=== PATIENT | female | born 1980 | race African-American/Black ===

== ENCOUNTER 2018-06-02 | Emergency (ER) | payer SELFPAY ==
[~2018-06-02] VITALS: Ht 154.9 cm; Wt 79.4 kg
[2018-06-02 00:08] VITALS: BP 134/88
[2018-06-02] MEDS ORDERED: NKM (00:16)
--- NOTE | 2018-06-02 00:27 | Emergency Room Report ---
History of Present Illness General Chief Complaint: Vomiting Source: Patient Present Illness HPI Is a 38-year-old female with history of asthma. She presents with chief complaint of left flank pain. Onset 3 days ago. Was relatively acute. She has nausea vomiting. No diarrhea. She went to [facility] 2 days ago. Had x- rays which were negative. Urine show blood but she is currently menstruating. Was told that is probably a viral infection. Not getting better. Pain now radiating toward the groin area. Painful urination. No fever chills but no hematuria. Family history of kidney stone. Pain is 9 out of 10. Nothing made it better. Nothing made it worse. [id number] medicine not helping. Allergies: Coded Allergies: IBUPROFEN (Verified Allergy, Unknown, 06/02/18) KETOROLAC (Verified Allergy, Unknown, 06/02/18) Patient History Past Medical History: see triage record, old chart reviewed, asthma Past Surgical History: none Pertinent Family History: none Social History: Denies: smoking Last Menstrual Period: 1 week ago Now: No Immunizations: other Reviewed Nursing Documentation: PMH: Agreed; PSxH: Agreed Nursing Documentation-PMH Hx Gastrointestinal Problems: Yes - Appy Review of Systems Eye: Denies: eye pain, blurred vision ENT: Denies: ear pain, nose congestion, throat swelling Respiratory: Denies: cough, shortness of breath Cardiovascular: Denies: chest pain, palpitations Gastrointestinal: Reports: abdominal pain; Denies: diarrhea, nausea, vomiting Musculoskeletal: Denies: back pain, joint pain Skin: Denies: rash Neurological: Denies: headache, numbness Endocrine: Denies: increased thirst, increased urine Hematologic/Lymphatic: Denies: easy bruising All Other Systems: negative except mentioned in HPI Physical Exam Vital Signs Date Time Temp Pulse Resp B/P (MAP) Pulse Ox O2 Delivery O2 Flow Rate FiO2 06/02/18 00:07 Room Air vitals unremarkable Sp02 EP Interpretation: reviewed, normal General Appearance: well appearing, no apparent distress, alert Head: normocephalic, atraumatic Eyes: bilateral eye PERRL, bilateral eye EOMI ENT: hearing grossly normal, normal pharynx Neck: full range of motion, supple, no meningismus Respiratory: chest non-tender, lungs clear, normal breath sounds Cardiovascular #1: regular rate, rhythm, no murmur Gastrointestinal: normal bowel sounds, non tender, no mass, no organomegaly, no bruit, non-distended Musculoskeletal: back normal, gait/station normal, normal range of motion Psychiatric: mood/affect normal Skin: warm/dry Medical Decision Making Diagnostic Impression: Primary Impression: Abdominal pain Qualified Codes: R10.32 - Left lower quadrant pain Additional Impression: Nausea & vomiting Qualified Codes: R11.2 - Nausea with vomiting, unspecified ER Course Patient presents with abdominal pain with nausea and vomiting. Labs unremarkable. Urine negative. No ketones. CT scan normal. Pain is better now after IV medication. We'll discharge home. No evidence of an acute abdomen or obstruction. Lab Results Impression labs normal CT/MRI/US Diagnostic Results CT/MRI/US Diagnostic Results : Imaging Test Ordered: CT abdomen and pelvis Impression read by radiologist. Neg Last Vital Signs Date Time Temp Pulse Resp B/P (MAP) Pulse Ox O2 Delivery O2 Flow Rate FiO2 06/02/18 00:07 Room Air Status: improved Disposition: HOME, SELF-CARE Condition: Stable Scripts Ondansetron (Zofran) 4 Mg Tablet 4 MG ORAL Q6H PRN for Nausea & Vomiting, #15 TAB 0 Refills Prov: Brian Will MD 06/02/18 Hydrocodone/Acetaminophen 5-325* (HYDROCODONE/ACETAMINOPHEN 5-325*) 1 Each Tablet 1 TAB ORAL Q6H PRN for For Pain, #10 TAB 0 Refills Prov: Brian Will MD 06/02/18 Patient Instructions: Nausea and Vomiting, Adult Additional Instructions: Follow-up with your DrCarl in 2 to 3 days of not better. Return if symptom worsen. Brian Will MD Jun 02, 2018 00:27
[2018-06-02] MEDS ORDERED: Morphine Sulfate 4mg/ml Inj (IV/IM USE ONLY) IVP ONE ×2 (00:30→02:00)
[2018-06-02 00:32] LABS: APPEARANCE,URINE CLEAR; BILIRUBIN, URINE NEGATIVE (NEGATIVE); COLOR,URINE PALE YELLOW; GLUCOSE, URINE (UA) NEGATIVE (NEGATIVE); KETONES,URINE NEGATIVE (NEGATIVE); LEUKOCYTE ESTERASE ,URINE NEGATIVE (NEGATIVE); NITRITE,URINE NEGATIVE (NEGATIVE); PH,URINE 6.5 (4.5-8.0); PROTEIN,URINE NEGATIVE (NEGATIVE); UROBILINOGEN,URINE NORMAL MG/DL (0.0-1.0)
[2018-06-02 00:45] LABS: BASOPHILS % (AUTO) 1.6 % (0.0-2.0); EOSINOPHILS % (AUTO) 1.2 % (0.0-3.0); HEMATOCRIT 37.6 % (37.0-47.0); LYMPHOCYTES % (AUTO) 32.4 % (20.0-45.0); MEAN CORPUSCULAR VOLUME 89 FL (80-99); NEUTROPHILS % (AUTO) 59.8 % (45.0-75.0); PLATELET COUNT 271 K/UL (150-450); RED BLOOD COUNT 4.25 M/UL (4.20-5.40); RED CELL DISTRIBUTION WIDTH 15.3 % (11.6-14.8); WHITE BLOOD COUNT 10.7 K/UL (4.8-10.8)
[2018-06-02 00:53] LABS: ANION GAP 8 mmol/L (5-15); BLOOD UREA NITROGEN 9 mg/dL (7-18); CALCIUM 9.5 MG/DL (8.5-10.1); CARBON DIOXIDE 29 MMOL/L (21-32); CHLORIDE 104 MMOL/L (98-107); CREATININE 0.9 MG/DL (0.55-1.30); POTASSIUM 4.2 MMOL/L (3.5-5.1); SODIUM 141 MMOL/L (136-145)
[2018-06-02] MEDS ORDERED: DiphenhydrAMINE 50mg/ml Inj IVP ONE ×2 (01:00→02:15)
[2018-06-02] MEDS ORDERED: HYDROCODON-ACE1 EA15 ORAL (02:27)
[2018-06-02] MEDS ORDERED: ZOFRAN4 MG ORAL (02:27)
[2018-06-02 02:40] VITALS: BP 136/88
[2018-06-02 02:45] VITALS: BP 136/88
--- NOTE | 2018-06-02 09:01 | Diagnostic Imaging Report ---
Indication: Abdominal pain for 3 days Technique: Noncontrast CT of the abdomen and pelvis utilizing automated exposure control. Axial, sagittal and coronal reformats presented. CT dose: Total DLP 735.25 mGycm; CTDI vol 15.47 mGy Comparison: None Findings: Please note that evaluation of the abdominal and pelvic viscera and vascular structures is limited without the use of intravenous and oral contrast. Within these limitations the following observations are made: Minimal dependent atelectatic changes noted in the posterior lower lobes bilaterally. Heart size within normal limits. No pericardial effusion. Partially imaged breast tissue grossly symmetric. Liver is mildly enlarged measuring 18 cm in length. Otherwise noncontrast evaluation of the liver, gallbladder, spleen, adrenal glands and pancreas is grossly unremarkable. There is no perinephric stranding. No urinary tract stone or hydronephrosis. Bladder unremarkable. Uterus grossly unremarkable for CT in patient's age. A low-attenuation structure is noted in the right adnexa most likely representing a cyst, possibly physiologic. There is no free intraperitoneal air or fluid. There is no evidence of bowel obstruction or definite inflammatory changes in the mesentery. Appendix is not definitively identified however there are no focal inflammatory changes in the right lower quadrant to suggest acute appendicitis. Abdominal aorta normal in caliber. No pathologically enlarged/conglomerate lymphadenopathy identified. No acute osseous abnormality. There is a tiny fat-containing umbilical hernia. IMPRESSION: Limited exam without intravenous and oral contrast. Within these limitations: No evidence of acute intra-abdominal pathology. Incidental findings as above. This corresponds with the statrad preliminary report. The CT scanner at [facility] is accredited by the [employer] and the scans are performed using protocols designed to limit radiation exposure to as low as reasonably achievable to attain images of sufficient resolution adequate for diagnostic evaluation.
== END 2018-06-02 02:45 | disposition home or self-care (01) ==
LOC: EMR 00:30
DX: R10.32 Left lower quadrant pain (principal); R11.2 Nausea with vomiting, unspecified; Z88.6 Allergy status to analgesic agent; Z90.89 Acquired absence of other organs
CPT/HCPCS: 36415; 74176; 80048; 81003; 81025; 85025; 96361; 96374; 96375; 96376; 99284; J1200; J2270; J2405

== ENCOUNTER 2018-06-06 19:46 | Inpatient (IN) | payer MEDICAID ==
[~2018-06-06] VITALS: Ht 154.9 cm; Wt 81.6 kg
[~2018-06-06 19:46] MED LIST: HYDROCODON-ACE1 EA15 ORAL; NKM; ZOFRAN4 MG ORAL
[2018-06-06] MEDS ORDERED: Morphine Sulfate 10mg/ml Inj IVP ONE (20:15)
--- NOTE | 2018-06-06 20:16 | Emergency Room Report ---
History of Present Illness General Chief Complaint: Vomiting Source: Patient Present Illness HPI Is a 38-year-old female with a history of appendectomy. She presents with chief complaint abdominal pain with nausea and vomiting. She was here 4 days ago for the same thing. Labs are unremarkable. Urine unremarkable. CT scan show small right ovarian cyst. She has a history of ovarian cyst that require surgery. She also has a history of appendectomy. Said she been home she's been continual vomiting with pain. Nausea is nonbloody nonbilious. No diarrhea. No fever or chills. Pain is 9 out of 10. Her pain is in the lower quadrant rating from right to left. Allergies: Coded Allergies: IBUPROFEN (Verified Allergy, Unknown, 06/02/18) KETOROLAC (Verified Allergy, Unknown, 06/02/18) Patient History Past Medical History: see triage record, old chart reviewed Past Surgical History: appy Pertinent Family History: none Social History: Denies: smoking Last Menstrual Period: Two weeks ago Now: No Immunizations: other Reviewed Nursing Documentation: PMH: Agreed; PSxH: Agreed Review of Systems Eye: Denies: eye pain, blurred vision ENT: Denies: ear pain, nose congestion, throat swelling Respiratory: Denies: cough, shortness of breath Cardiovascular: Denies: chest pain, palpitations Gastrointestinal: Reports: abdominal pain, nausea, vomiting; Denies: diarrhea Musculoskeletal: Denies: back pain, joint pain Skin: Denies: rash Neurological: Denies: headache, numbness Endocrine: Denies: increased thirst, increased urine Hematologic/Lymphatic: Denies: easy bruising All Other Systems: negative except mentioned in HPI Physical Exam Vital Signs Date Time Temp Pulse Resp B/P (MAP) Pulse Ox O2 Delivery O2 Flow Rate FiO2 06/06/18 20:00 97.9 99 16 106/69 97 Room Air vitals normal Sp02 EP Interpretation: reviewed, normal General Appearance: well appearing, no apparent distress, alert Head: normocephalic, atraumatic Eyes: bilateral eye PERRL, bilateral eye EOMI ENT: hearing grossly normal, normal pharynx Neck: full range of motion, supple, no meningismus Respiratory: chest non-tender, lungs clear, normal breath sounds Cardiovascular #1: regular rate, rhythm, no murmur Gastrointestinal: normal bowel sounds, no mass, no organomegaly, no bruit, non- distended, tenderness - Lower pelvic Musculoskeletal: back normal, gait/station normal, normal range of motion Psychiatric: mood/affect normal Skin: warm/dry Medical Decision Making Diagnostic Impression: Primary Impression: Intractable abdominal pain Additional Impression: Intractable vomiting with nausea Qualified Codes: R11.2 - Nausea with vomiting, unspecified ER Course Is a with intractable vomiting and diarrhea. This is a second visit for her within the last week. Labs unremarkable. I repeat a CT scan it just showed a small right ovarian cyst. Now her pain is on the left side. Ultrasound is negative for any torsion or obvious hemorrhagic cyst. Because of her continual pain and increasing requirement for IV medication, will admit for IV fluid and IV pain medication. I discussed the case with Dr. Nixon who will admit. CT/MRI/US Diagnostic Results CT/MRI/US Diagnostic Results : Imaging Test Ordered: Pelvic ultrasound Impression Read by radiologist. Small right ovarian cyst. No torsion. Last Vital Signs Date Time Temp Pulse Resp B/P (MAP) Pulse Ox O2 Delivery O2 Flow Rate FiO2 06/06/18 20:00 97.9 99 16 106/69 97 Room Air Brian Will MD Jun 06, 2018 20:16
--- NOTE | 2018-06-06 20:20 | NUR ---
ER Nurse Note: Pt came from home c/o left lower abdominal pain associated with n/v. Pt stated pain at 9/10 radiating slightly to the left flank. Pt stated she had a recent visit to [facility] [place] for the same problem. Pt is vomiting bile, bowel sounds heard in all quadrants. Pain with pressure. Pt is a&ox4, VSS. ERMD at bedside; will continue to [facility].
[2018-06-06 20:34] LABS: APPEARANCE,URINE CLEAR; BILIRUBIN, URINE NEGATIVE (NEGATIVE); COLOR,URINE PALE YELLOW; GLUCOSE, URINE (UA) NEGATIVE (NEGATIVE); KETONES,URINE NEGATIVE (NEGATIVE); LEUKOCYTE ESTERASE ,URINE 1+ (NEGATIVE); NITRITE,URINE NEGATIVE (NEGATIVE); PH,URINE 7 (4.5-8.0); PROTEIN,URINE NEGATIVE (NEGATIVE); UROBILINOGEN,URINE NORMAL MG/DL (0.0-1.0)
[2018-06-06 20:45] VITALS: BP 191/101
[2018-06-06 21:10] LABS: BASOPHILS % (AUTO) 1.8 % (0.0-2.0); EOSINOPHILS % (AUTO) 1.5 % (0.0-3.0); HEMATOCRIT 39.2 % (37.0-47.0); HEMOGLOBIN 12.1 G/DL (12.0-16.0); MEAN CORPUSCULAR VOLUME 90 FL (80-99); MONOCYTES % (AUTO) 6.3 % (1.0-10.0); NEUTROPHILS % (AUTO) 59.4 % (45.0-75.0); PLATELET COUNT 209 K/UL (150-450); RED BLOOD COUNT 4.37 M/UL (4.20-5.40); RED CELL DISTRIBUTION WIDTH 15.3 % (11.6-14.8); WHITE BLOOD COUNT 10.6 K/UL (4.8-10.8)
[2018-06-06 21:23] LABS: ANION GAP 11 mmol/L (5-15); BLOOD UREA NITROGEN 18 mg/dL (7-18); CALCIUM 9.2 MG/DL (8.5-10.1); CARBON DIOXIDE 25 MMOL/L (21-32); CHLORIDE 103 MMOL/L (98-107); CREATININE 1.1 MG/DL (0.55-1.30); POTASSIUM 4.1 MMOL/L (3.5-5.1); SODIUM 139 MMOL/L (136-145)
[2018-06-06 21:27] LABS: ALANINE AMINOTRANSFERASE 22 U/L (12-78); ALBUMIN 3.9 G/DL (3.4-5.0); ALKALINE PHOSPHATASE 86 U/L (46-116); ASPARTATE AMINO TRANSFERASE 16 U/L (15-37); BILIRUBIN,TOTAL 0.1 MG/DL (0.2-1.0)
--- NOTE | 2018-06-06 21:50 | Diagnostic Imaging Report ---
EXAM: US Pelvis Complete, Transabdominal CLINICAL HISTORY: ABD PAIN TECHNIQUE: Real-time transabdominal pelvic ultrasound (complete) with image documentation. COMPARISON: CT performed on 06/02/18. FINDINGS: Uterus/cervix: The uterus is retroverted. The endometrial stripe measures 12 mm. The uterus measures 8.0 x 5.7 x 4.7 cm. No myometrial mass. Right ovary: There is a 2.5 x 2.3 x 1.8 cm right ovarian cyst. The right ovary demonstrates vascular flow and measures 4.2 x 2.9 x 3.5 cm. Left ovary: The left ovary is unremarkable and measures 3.1 x 1.8 x 1. 4 cm. The left ovary demonstrates vascular flow. Free fluid: Trace amount of nonspecific free fluid in the pelvis. Bladder: Not well visualized. IMPRESSION: Small right ovarian cyst as described above.
[2018-06-06] MEDS ORDERED: HYDROmorphone 1mg/ml Carpuject IVP ONE (22:15)
[2018-06-06] MEDS ORDERED: DiphenhydrAMINE 50mg/ml Inj IVP ONE (22:15)
[2018-06-06] MEDS ORDERED: Isovue-300 100ml vial INJ PRN (22:15)
[2018-06-06 22:40] VITALS: BP 123/78
--- NOTE | 2018-06-06 23:04 | Diagnostic Imaging Report ---
EXAM: CT Abdomen and Pelvis With Intravenous Contrast CLINICAL HISTORY: ABD PAIN TECHNIQUE: Axial computed tomography images of the abdomen and pelvis with intravenous contrast. CTDI is 0.15, 16.58 mGy and DLP is 865 mGy-cm. One or more of the following dose reduction techniques were used: automated exposure control, adjustment of the mA and/or kV according to patient size, use of iterative reconstruction technique. Coronal and sagittal reformatted images were created and reviewed. COMPARISON: 06/02/18 FINDINGS: Lung bases: Mild atelectasis at the lung bases. ABDOMEN: Liver: The liver is unremarkable. Gallbladder and bile ducts: The gallbladder is unremarkable. No calcified stones. No ductal dilation. Pancreas: The pancreas is unremarkable. No ductal dilation. Spleen: The spleen is unremarkable. Adrenals: The adrenals are unremarkable. Kidneys and ureters: The kidneys are unremarkable. No hydronephrosis. Stomach and bowel: No evidence for bowel related inflammatory changes. No evidence for significant bowel loop dilation to suggest an obstructive process. PELVIS: Appendix: The appendix is not clearly identified. No evidence for pericecal inflammatory changes. Bladder: The bladder is grossly unremarkable. Reproductive: Right ovarian cyst measuring 2.3 x 1.5 cm in maximum transverse dimensions. A smaller cyst is also noted in the right ovary. Question of a small fibroid in the uterus. ABDOMEN and PELVIS: Intraperitoneal space: Small amount of nonspecific free fluid in the pelvis. No evidence for free intraperitoneal gas. Bones/joints: No acute fracture. No dislocation. Soft tissues: Small umbilical hernia containing fat only. Vasculature: Unremarkable. No abdominal aortic aneurysm. Lymph nodes: Unremarkable. No enlarged lymph nodes. IMPRESSION: Right ovarian cyst measuring 2.3 x 1.5 cm in maximum transverse dimensions. A smaller cyst is also noted in the right ovary.
--- NOTE | 2018-06-06 23:12 | NUR ---
ER Nurse Note: Pt was given 2 IV zofran for n/v; pt tolerated well but pt complained of slight nausea. Pain medication, no signs of distress, no complains of pain. Pt is asleep, VSS, currently no complains of itchiness and pain. [facility].
[2018-06-06] MEDS ORDERED: Sodium Chloride 500ML 500 ML IVLG SCH (23:22)
[2018-06-06] MEDS ORDERED: Morphine Sulfate 4mg/ml Inj (IV/IM USE ONLY) IVP PRN (23:30)
--- NOTE | 2018-06-06 23:31 | NUR ---
ER Nurse Note: Pt refused VRE/CRE swab; allowed MRSA swab. Pt is resting, calm, no signs of distress. All belongings at bedside. Will continue to [facility].
[2018-06-07 00:31] VITALS: BP 101/53
--- NOTE | 2018-06-07 00:34 | NUR ---
ER Nurse Note: Gave report to QUIRINO Alston on MS. Pt is a&ox4, VSS, asleep, left with all belonings.
--- NOTE | 2018-06-07 00:55 | NUR ---
NURSE NOTES: Patient admitted from ER via gurney. Patient is aaox4, drowsy from medication but still c/o 8/10 LLQ abdominal pain intermittently. Denies nausea and requesting for juice, made aware that we are awaiting for admitting doctor for admission orders. Lwrist IV is intact and patent, but positional. All belongings verified at bedside. Call light provided for patient. Will continue to monitor. Call placed to Dr. Nixon's voicemail. Awaiting for call back.
[2018-06-07 01:02] VITALS: BP 104/65
--- NOTE | 2018-06-07 01:30 | NUR ---
NURSE NOTES: Admission orders received from Dr. Nixon. Patient requesting if she could have benadryl with morphine. Dr. Nixon did not order benadryl for patient. Addendum: 06/07/18 at 0232 by ARMANDO MOREIRA RN RN At 0200 after giving patient 1mg of morphine, pt complained of itching and redness was apparent on her right arm where she was scratching. Dr. Nixon was made aware. Dr. Nixon dc/d morphine and ordered tramadol instead for patient. Went back to patient but patient was sleeping and appears comfortable at this time. Will monitor.
[2018-06-07] MEDS ORDERED: HYDROcodone/Acetamin 10/325 tab ORAL PRN (01:45)
[2018-06-07] MEDS ORDERED: Morphine Sulfate 4mg/ml Inj (IV/IM USE ONLY) IVP PRN (01:45)
[2018-06-07] MEDS ORDERED: traMADol 50mg tab ORAL PRN (02:15)
--- NOTE | 2018-06-07 03:00 | NUR ---
NURSE NOTES: Patient had crackers and total of 5 cups of orange juice, tolerating well.
[2018-06-07 04:00] VITALS: BP 97/78
--- NOTE | 2018-06-07 05:45 | NUR ---
NURSE NOTES: Dr. Nixon made aware that patient vomited (at 0430) 45 mins after norco administration. RN unable to see the emesis as patient's bathroom was locked while she was vomiting/heaving. and patient flushed the toilet after. Patient still c/o pain at 0540 but next pain medication still not due. Per Dr. Nixon, give tramadol. Went to patient, patient is asleep. Will continue to monitor.
--- NOTE | 2018-06-07 06:45 | NUR ---
NURSE NOTES: Checked on patient, still asleep. Will offer tramadol to patient when awake.
--- NOTE | 2018-06-07 07:44 | NUR ---
HAND-OFF: Report given to Leeanne Christopher RN.
[2018-06-07 08:00] VITALS: BP 122/75
--- NOTE | 2018-06-07 08:11 | NUR ---
NURSE NOTES: Received report from QUIRINO Snyder. Rounding done with outgoing nurse. Patient asleep and call light within reach. Will continue to monitor.
--- NOTE | 2018-06-07 09:30 | NUR ---
NURSE NOTES: Belongings checked with the patient. Discharge instruction and prescription were given. Removed IV. Discharged in stable condition.
--- NOTE | 2018-06-07 10:15 | History and Physical Report ---
DATE OF ADMISSION: 06/06/2018 CHIEF COMPLAINT: Intractable nausea, vomiting, and abdominal pain. HISTORY OF PRESENT ILLNESS: The patient is a pleasant 38-year-old female. She has a prior history of ovarian cysts. She presented with complaints of five days of intractable nausea and vomiting. According to the patient, she has been unable to tolerate any POs including some liquids. She presented to the emergency room five days ago, was given Zofran and pain medications, but returned because of persistent nausea and vomiting. In the ER, she had a CT scan of the abdomen and pelvis that was relatively unremarkable except for a small right ovarian cyst. She had a pelvic ultrasound, which confirmed the ovarian cysts. Otherwise, the patient denies any melena. She has had no bright red blood per rectum. She has had one ill contact. She denies any fevers or chills. PAST MEDICAL HISTORY: As above. PAST SURGICAL HISTORY: Includes appendectomy. CURRENT MEDICATIONS: Reconciled and reviewed. ALLERGIES: Include Tylenol, hydrocodone, ibuprofen, Toradol, and morphine. FAMILY HISTORY: Noncontributory. SOCIAL HISTORY: Negative for alcohol or drugs. REVIEW OF SYSTEMS: Negative except for nausea and vomiting. PHYSICAL EXAMINATION: VITAL SIGNS: Temperature 97.2 degrees, pulse 83, respirations 18, and blood pressure 97/78. GENERAL: The patient is well developed, in no apparent distress. HEART: Regular rate and rhythm. LUNGS: Clear. ABDOMEN: Soft and minimal tender on the left side. There is no rebound or guarding. EXTREMITIES: No clubbing, cyanosis, or edema. LABORATORY DATA: Tox screen was significant only for benzodiazepines. White count 10, hemoglobin 12, hematocrit 39, and platelets 209,000. Sodium 139, potassium 4.1, and creatinine was 1.1. Lipase is 285. Beta HCG was less than 1. Urine was clear. ASSESSMENT: This is a pleasant female, who complaints of intractable nausea and vomiting, suspect resolving gastroenteritis. The patient has already tolerated breakfast this morning. PLAN: Tylenol for pain. IV hydration. IV Zofran as needed. The patient tolerated her lunch, she can be discharged. The patient has been requesting IV opiates. I discussed with her at length that there is no clear objective evidence giving any IV opiates at this time. We will reassess after lunch for possible discharge. Jamie Nixon M.D. DR: BLAISE JOB#: [id number] CC:
--- NOTE | 2018-06-09 07:48 | Discharge Summary ---
Discharge Summary Discharge Summary _ DATE OF ADMISSION: 06/06/2018 DATE OF DISCHARGE: 06/07/2018 DISCHARGED BY: REASON FOR ADMISSION: 38 years old female with history of ovarian cyst, presented with complaint of 5 days of intractable nausea and vomiting and abdominal pain. According to patient, she was unable to tolerate any oral foods including liquids. Patient presented to the emergency room initially 5 days ago and was given Zofran and analgesia . However, patient returned due to persistent nausea and vomiting and inability to tolerate oral diet. In emergency department patient had a CT scan of the abdomen and pelvis which was relatively unremarkable except right ovarian cyst measuring 2.3 x 1.5 cm in maximum transverse dimensions. No torsion. Pelvic ultrasound confirmed the ovarian cyst. Patient denied melena , no bright red blood per rectum. No fever, no chills Laboratory workup was unremarkable. Urine test was negative. Urine toxicology screen was positive for benzodiazepine. Urinalysis revealed no evidence of urinary tract infection. Patient admitted for intractable nausea and vomiting and abdominal pain. HOSPITAL COURSE: Patient admitted to medical surgical floor. Patient started on the IV hydration. Patient started on clear liquid diet and was advanced as tolerated. Supportive care provided. Antiemetics were on board as needed. Pain management was addressed , pain was controlled. Patient was able to tolerata diet. Nausea and vomiting resolved. Patient was stable for discharge home. FINAL DIAGNOSES: Likely gastroenteritis-resolving Intractable abdominal pain with nausea and vomiting m likely due to gastroenteritis Right ovarian cyst DISCHARGE MEDICATIONS: See Medication Reconciliation list. DISCHARGE INSTRUCTIONS: Patient was discharged home. Follow up with primary care provider in one week. I have been assigned to dictate discharge summary for this account. I was not involved in the patient's management. Sara Persaud NP Jun 09, 2018 07:48
== END 2018-06-07 09:30 | disposition home or self-care (01) | DRG 249 ==
LOC: EMR 20:20 → 3E 22:56 → EDBEDREQ 06-07 00:21
DX: K52.9 Noninfective gastroenteritis and colitis, unspecified (principal); N83.201 Unspecified ovarian cyst, right side; Z88.6 Allergy status to analgesic agent
CPT/HCPCS: 36415; 74177; 76856; 80053; 80307; 81003; 81025; 83690; 84702; 85025; 87081; 96361; 96374; 96375; 99285; J2405

== ENCOUNTER 2018-07-08 23:43 | Emergency (ER) | payer SELFPAY ==
[~2018-07-08] VITALS: Ht 154.9 cm; Wt 81.6 kg
--- NOTE | 2018-07-09 | NUR ---
ED Nurse Note: Patient walk in c/o lower abdominal pain and N/V/D since yesterday. Denies current NVD. AO4. NAD. VSS. ERMD at bedside. Urine collected; sent down to lab.
[2018-07-09] MEDS ORDERED: HYDROmorphone 1mg/ml Carpuject IM ONE (00:15)
[2018-07-09 00:21] VITALS: BP 126/74
[2018-07-09 00:26] LABS: BILIRUBIN, URINE NEGATIVE (NEGATIVE); COLOR,URINE PALE YELLOW; GLUCOSE, URINE (UA) NEGATIVE (NEGATIVE); KETONES,URINE NEGATIVE (NEGATIVE); LEUKOCYTE ESTERASE ,URINE NEGATIVE (NEGATIVE); NITRITE,URINE NEGATIVE (NEGATIVE); PH,URINE 5 (4.5-8.0); PROTEIN,URINE NEGATIVE (NEGATIVE); UROBILINOGEN,URINE NORMAL MG/DL (0.0-1.0)
[2018-07-09 00:27] LABS: APPEARANCE,URINE CLEAR
[2018-07-09] MEDS ORDERED: PROMETHAZINE HC25 M1 ORAL (01:04)
[2018-07-09] MEDS ORDERED: TRAMADOL HCL50 MG ORAL (01:04)
--- NOTE | 2018-07-09 01:04 | Emergency Room Report ---
History of Present Illness General Chief Complaint: Abdominal Pain Source: Patient Present Illness HPI This is a 37-year-old female with a history of recurrent abdominal pain with nausea vomiting and diarrhea. She usually go to the hospital at least once a month. Normally her [place] but now coming here. She presents with chief complaint abdominal pain with nausea vomiting diarrhea. Onset tonight. Pain is 10 out of 10. Denies any fever chills but she was recently admitted here with normal CT scan and labs. Allergies: Coded Allergies: IBUPROFEN (Verified Allergy, Unknown, 06/02/18) KETOROLAC (Verified Allergy, Unknown, 06/02/18) Patient History Past Medical History: see triage record, old chart reviewed Past Surgical History: none Pertinent Family History: none Social History: Denies: smoking Last Menstrual Period: 06/18/2018 Now: No Immunizations: other Reviewed Nursing Documentation: PMH: Agreed; PSxH: Agreed Nursing Documentation-PMH Past Medical History: No History, Except For Hx Cardiac Problems: No Hx Neurological Problems: No Review of Systems Eye: Denies: eye pain, blurred vision ENT: Denies: ear pain, nose congestion, throat swelling Respiratory: Denies: cough, shortness of breath Cardiovascular: Denies: chest pain, palpitations Gastrointestinal: Reports: abdominal pain, diarrhea, nausea, vomiting Musculoskeletal: Denies: back pain, joint pain Skin: Denies: rash Neurological: Denies: headache, numbness Endocrine: Denies: increased thirst, increased urine Hematologic/Lymphatic: Denies: easy bruising All Other Systems: negative except mentioned in HPI Physical Exam Vital Signs Date Time Temp Pulse Resp B/P (MAP) Pulse Ox O2 Delivery O2 Flow Rate FiO2 07/08/18 23:55 98.1 90 16 126/74 100 Room Air vitals normal Sp02 EP Interpretation: reviewed, normal General Appearance: well appearing, no apparent distress, alert Head: normocephalic, atraumatic Eyes: bilateral eye PERRL, bilateral eye EOMI ENT: hearing grossly normal, normal pharynx Neck: full range of motion, supple, no meningismus Respiratory: chest non-tender, lungs clear, normal breath sounds Cardiovascular #1: regular rate, rhythm, no murmur Gastrointestinal: normal bowel sounds, no mass, no organomegaly, no bruit, non- distended, tenderness - Soft, diffuse tenderness Musculoskeletal: back normal, gait/station normal, normal range of motion Psychiatric: mood/affect normal Skin: warm/dry Medical Decision Making Diagnostic Impression: Primary Impression: Abdominal pain Qualified Codes: R10.84 - Generalized abdominal pain Additional Impression: Nausea vomiting and diarrhea ER Course Patient with abdominal pain with nausea vomiting diarrhea. Is a recurrent issue. [address] scan negative. She also had CT scan in the past at [facility]. I see no need for blood work or CT scan. Abdominal exam is benign. I see no evidence of acute abdomen or obstruction. She is better now after dose of Dilaudid and Phenergan. Last Vital Signs Date Time Temp Pulse Resp B/P (MAP) Pulse Ox O2 Delivery O2 Flow Rate FiO2 07/09/18 00:21 90 16 Room Air 07/09/18 00:21 98.1 126/74 100 Status: improved Disposition: HOME, SELF-CARE Condition: Stable Scripts Promethazine Hcl* (PHENERGAN*) 25 Mg Tablet 25 MG ORAL Q6H, #15 TAB Prov: Brian Will MD 07/09/18 Tramadol Hcl* (ULTRAM*) 50 Mg Tablet 50 MG ORAL Q6H PRN for For Pain, #15 TAB 0 Refills Prov: Brian Will MD 07/09/18 Patient Instructions: Abdominal Pain, Adult Additional Instructions: Follow-up with your DrCarl in 2-3 days. You may benefit from referral to see a natural sciences professor. Return if worse. Brian Will MD Jul 09, 2018 01:04
--- NOTE | 2018-07-09 01:05 | NUR ---
ED Nurse Note: Patient cleared for discharge per ERMD. NAD. VSS. Patient given prescriptions and discharge instructions; verbalized understanding. ID band removed. Patient ambulated steady with all personal belongings.
[2018-07-09 01:07] VITALS: BP 126/74
== END 2018-07-09 01:05 | disposition home or self-care (01) ==
LOC: EMR 07-09 00:14
DX: R10.84 Generalized abdominal pain (principal); R11.2 Nausea with vomiting, unspecified; Z88.6 Allergy status to analgesic agent
CPT/HCPCS: 81003; 81025; 96372; 99283; J1170; J2550